=== PATIENT | female | born 1970 | race African-American/Black ===

== ENCOUNTER 2017-01-22 17:22 | Emergency (ER) | payer OTHER ==
[~2017-01-22] VITALS: Ht 153.7 cm; Wt 70.8 kg
[2017-01-22 17:34] VITALS: BP 121/73
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
== END 2017-01-22 19:21 | disposition home or self-care (01) ==
LOC: ER 17:22
DX: S63.501A Unspecified sprain of right wrist, initial encounter (principal); Z88.8 Allergy status to other drugs, medicaments and biological substances; V43.92XA Unspecified car occupant injured in collision with other type car in traffic accident, initial encounter; Y93.89 Activity, other specified; Y99.8 Other external cause status; Y92.410 Unspecified street and highway as the place of occurrence of the external cause
CPT/HCPCS: 29125; 73110; 99284-25